=== PATIENT | male | born 1975 | race Caucasian/White ===

== ENCOUNTER 2016-07-25 13:07 | Day surgery (SDC) | payer OTHER ==
[~2016-07-25] VITALS: Ht 182.9 cm; Wt 96.1 kg
[~2016-07-25 13:07] MED LIST: None at this time
[2016-07-25] MEDS ORDERED: HYDROmorphone 2 MG/ML, 1ML ONE (14:12)
[2016-07-25] MEDS ORDERED: DIPH,PERTUSS(ACELL),TET VAC/PF 0.5 ML IM-VACC ONE ×2 (14:16→14:30)
[2016-07-25] MEDS ORDERED: ONDANSETRON 2MG/ML, 2ML IVPush ONE (14:30)
[2016-07-25] MEDS ORDERED: CEFAZOLIN PMX 1GM/50ML 50 ML IVPB ONE (14:30)
[2016-07-25] MEDS ORDERED: ONDANSETRON 2MG/ML, 2ML ONE ×2 (14:30→17:29)
[2016-07-25] MEDS ORDERED: BUPIVACAINE/PF 0.25% INFIL ONE (14:30)
[2016-07-25] MEDS ORDERED: HYDROmorphone 1 MG/ML, 1ML IVPush PRN (14:30)
[2016-07-25] MEDS ORDERED: SODIUM CHLORIDE FLUSH 10ML SYR IVF ONE (14:30)
[2016-07-25] MEDS ORDERED: CEFAZOLIN PMX 1GM/50ML 50 ML ONE (14:30)
[2016-07-25 16:09] VITALS: BP 119/79
[2016-07-25] MEDS ORDERED: FENTANYL PF 250 MCG/5ML ONE (17:17)
[2016-07-25] MEDS ORDERED: MIDAZOLAM 1 MG/ML, 2ML ONE (17:17)
[2016-07-25] MEDS ORDERED: BUPIVACAINE/PF 0.5% ONE (17:27)
[2016-07-25] MEDS ORDERED: DEXAMETHASONE 4 MG/ML, 1ML ONE (17:29)
[2016-07-25] MEDS ORDERED: CEFAZOLIN 1,000 MG ONE (17:29)
[2016-07-25] MEDS ORDERED: PROPOFOL 10 MG/ML, 20ML ONE (17:29)
[2016-07-25] MEDS ORDERED: METOCLOPRAMIDE 5 MG/ML, 2ML IV PRN (17:30)
[2016-07-25] MEDS ORDERED: EPHEDRINE 50 MG/ML, 1ML IVPush PRN (17:30)
[2016-07-25] MEDS ORDERED: ONDANSETRON 2MG/ML, 2ML IVPush PRN (17:30)
[2016-07-25] MEDS ORDERED: OXYcodone 5 MG/5 ML ORAL.SOL UDC PO PRN (17:30)
[2016-07-25] MEDS ORDERED: ACETAMINOPHEN 325 MG TABLET PO PRN (17:30)
[2016-07-25] MEDS ORDERED: PROMETHAZINE 25 MG/ML, 1ML IV PRN (17:30)
[2016-07-25] MEDS ORDERED: KETOROLAC 30 MG/1 ML IV PRN (17:30)
[2016-07-25] MEDS ORDERED: MEPERIDINE/PF 25MG/0.5ML IVPush PRN (17:30)
[2016-07-25] MEDS ORDERED: hydrALAzine 20 MG/ML, 1ML IV PRN (17:30)
[2016-07-25] MEDS ORDERED: HYDROmorphone 1 MG/ML, 1ML IV PRN (17:30)
[2016-07-25] MEDS ORDERED: LABETALOL 5MG/ML, 20ML IV PRN (17:30)
[2016-07-25] MEDS ORDERED: MIDAZOLAM 1 MG/ML, 2ML IV PRN (17:30)
[2016-07-25] MEDS ORDERED: METOPROLOL 1 MG/ML, 5ML IV PRN (17:30)
[2016-07-25] MEDS ORDERED: NEOSPORIN OINT, 15GM ONE (17:43)
[2016-07-25] MEDS: FENTANYL PF 100 MCG/2ML IV PRN ×3 (18:25→18:45)
[2016-07-25] MEDS ORDERED: OXYcodone 5 MG/5 ML ORAL.SOL UDC ONE (18:25)
[2016-07-25] MEDS ORDERED: ACETAMINOPHEN 325 MG TABLET ONE (18:25)
[2016-07-25] MEDS ORDERED: FENTANYL PF 100 MCG/2ML ONE (18:25)
[2016-07-25] MEDS ORDERED: ACETAMINOPHEN 650 MG/20.3 ML UDC ONE (18:25)
== END 2016-07-25 19:57 | disposition home or self-care (01) ==
LOC: OR 16:11 → UNDOADMIN 16:25 → OR 16:25 → EDIP 16:25 → UNDODISIN 16:29 → OR 19:57
PROVIDERS: ATTEND Orthopaedic Surgery
DX: S62.521B Displaced fracture of distal phalanx of right thumb, initial encounter for open fracture (principal); Z79.899 Other long term (current) drug therapy
CPT/HCPCS: 26951; 73140; 90471; 90715; 96365; 96375; 99285; J0690; J1100; J1170; J2250; J2405; J2704; J3010; J3490